=== PATIENT | male | born 1935 | race Caucasian/White ===

== ENCOUNTER 2022-12-04 13:22 | Inpatient (IN) | payer MEDICARE ==
[~2022-12-04] VITALS: Ht 175.3 cm; Wt 891.3 kg
[2022-12-04 14:43] LABS: BASOPHILS # (AUTO) 0.5 K/uL (0.0-0.2); BASOPHILS % (AUTO) 1.4 % (0.0-2.0); EOSINOPHILS % (AUTO) 2.9 % (0.0-6.0); HEMATOCRIT 26 % (39-51); HEMOGLOBIN 8.2 g/dL (13.5-17.5); LYMPHOCYTES # (AUTO) 1.5 K/uL (0.8-4.8); LYMPHOCYTES % (AUTO) 4.3 % (20.0-44.0); MEAN CORPUSCULAR HEMOGLOBIN 27 PG (26.0-33.0); MEAN CORPUSCULAR HGB CONC 31 g/dl (31.0-36.0); MEAN CORPUSCULAR VOLUME 85 fL (80-96); MONOCYTES % (AUTO) 5.8 % (2.0-12.0); NEUTROPHILS # (AUTO) 30.2 K/uL (1.8-8.9); NEUTROPHILS % (AUTO) 85.6 % (43.0-81.0); PLATELET COUNT (AUTO) 544 K/uL (150-450); RED BLOOD CELL COUNT(AUTO) 3.09 MIL/uL (4.5-6.0); RED CELL DISTRIBUTION WIDTH 20.6 % (11.5-15.0)
[2022-12-04 14:44] LABS: WHITE BLOOD COUNT (AUTO) 35.3 K/uL (4.3-11.0)
[2022-12-04 14:54] LABS: CALCIUM, SERUM 12.4 mg/dL (8.5-10.1); CARBON DIOXIDE 26 mmol/L (21-32); CHLORIDE 97 mmol/L (98-107); CREATININE 0.6 mg/dL (0.6-1.3); GLUCOSE 96 mg/dL (74-106); POTASSIUM 4.4 mmol/L (3.5-5.1); SODIUM SERUM 128 mmol/L (136-145); UREA NITROGEN, BLOOD 11 mg/dL (7-18)
[2022-12-04 15:00] LABS: ALANINE AMINOTRANSFERASE 14 U/L (12-78); ALBUMIN 1.8 g/dL (3.4-5.0); ALKALINE PHOSPHATASE 147 U/L (46-116); ASPARTATE AMINOTRANSFERASE 23 U/L (15-37); BILIRUBIN,DIRECT 0.2 mg/dL (0.0-0.2); BILIRUBIN,TOTAL 0.4 mg/dL (0.2-1.0); TOTAL PROTEIN, SERUM 5.7 g/dL (6.4-8.2)
[2022-12-04] MEDS ORDERED: POVI3780 TP (15:30)
[2022-12-04] MEDS ORDERED: MELA1TAB2 PO (15:30)
[2022-12-04] MEDS ORDERED: OMEG1CAP40 PO (15:30)
[2022-12-04] MEDS ORDERED: CALCIUM ALGINATE TD (15:30)
[2022-12-04] MEDS ORDERED: ZINC50TA65 PO (15:30)
[2022-12-04] MEDS ORDERED: XEROFORM TD (15:30)
[2022-12-04] MEDS ORDERED: VITA400C74 PO (15:30)
[2022-12-04] MEDS ORDERED: ALFU10TA10 PO (15:30)
[2022-12-04] MEDS ORDERED: ZOLP5TAB2 PO (15:30)
[2022-12-04] MEDS ORDERED: GLUC1TAB65 PO (15:30)
[2022-12-04] MEDS ORDERED: SENN-261 PO (15:30)
[2022-12-04] MEDS ORDERED: VANCOMYCIN 1 GM in IV D5W 250 ML IV ONE (15:30)
[2022-12-04] MEDS ORDERED: IV NS 0.9% 1,000 ML BAG IV ONE (15:30)
[2022-12-04] MEDS ORDERED: PIPERACILLIN /TAZOBACTAM 3.375 G in IV D5W 50 ML IV ONE (15:30)
[2022-12-04] MEDS ORDERED: ASCO-340 PO (15:30)
[2022-12-04] MEDS ORDERED: OXYC5TAB3 PO (15:30)
[2022-12-04] MEDS ORDERED: APIX5TAB PO (15:30)
[2022-12-04] MEDS ORDERED: MULT-754 PO (15:30)
[2022-12-04] MEDS ORDERED: FINA5TAB4 PO (15:30)
[2022-12-04] MEDS ORDERED: OXYC10TA49 PO (15:30)
[2022-12-04] MEDS ORDERED: DOCU250C14 PO (15:30)
[2022-12-04] MEDS ORDERED: SIME80TA15 PO (15:30)
[2022-12-04] MEDS ORDERED: TRIA80CR12 TP (15:30)
[2022-12-04] MEDS ORDERED: LATA7.5D EACHEYE (15:30)
[2022-12-04] MEDS ORDERED: PUMP160C PO (15:30)
[2022-12-04 15:36] LABS: ANISOCYTOSIS 1+; EOSINOPHILS % (MANUAL) 2 % (0-4); LYMPHOCYTES % (MANUAL) 3 % (16-48); MONOCYTES % (MANUAL) 3 % (0-11.0); NEUTROPHILS % (MANUAL) 92 (42-76)
[2022-12-04 16:06] LABS: APPEARANCE,URINE CLEAR (CLEAR); BILIRUBIN,URINE NEGATIVE (NEGATIVE); BLOOD, URINE NEGATIVE Ery/uL (NEGATIVE); COLOR,URINE YELLOW (YELLOW); KETONES,URINE NEGATIVE (NEGATIVE); LEUKOCYTE ESTERASE ,URINE 1+ (NEGATIVE); NITRITE, URINE NEGATIVE (NEGATIVE); PROTEIN,URINE NEGATIVE (NEGATIVE); UGLUCOSE NEGATIVE (NEGATIVE)
[2022-12-04 16:26] LABS: INR 1.32 (0.91-1.10); PARTIAL THROMBOPLASTIN TIME 27.4 SEC (24.3-34.3); PROTHROMBIN TIME 13.6 SECS (9.2-11.1)
[2022-12-04 16:31] LABS: RBC,URINE 0-2 /HPF (0-2); WBC,URINE 21-50 /HPF (0-3)
[2022-12-04 16:32] LABS: ADD URINE CULTURE YES; BACTERIA,URINE 1+ /HPF (None Seen)
[2022-12-04] MEDS ORDERED: oxyCODONE IR immediate release 5 MG PO PRN (17:00)
[2022-12-04] MEDS ORDERED: SENNOSIDES 8.6 MG TABLET PO PRN (17:00)
[2022-12-04] MEDS ORDERED: HYDROMORPHONE 1 MG/1 ML DISP.SYRIN IV PRN (17:00)
[2022-12-04] MEDS ORDERED: IV NS 0.9% 1,000 ML IV SCH (17:00)
[2022-12-04] MEDS ORDERED: HYDROMORPHONE INJ 2 MG/ML DISP.SYRIN IV PRN (18:00)
[2022-12-04] MEDS ORDERED: ACETAMINOPHEN 325 MG TABLET PO PRN (18:00)
[2022-12-04] MEDS ORDERED: MAGNESIUM HYDROXIDE 30 ML UDC PO PRN (18:00)
[2022-12-04] MEDS ORDERED: ONDANSETRON HCL/PF 4 MG/2 ML VIAL IVP PRN (18:00)
[2022-12-04] MEDS ORDERED: MAG HYDROX/AL HYDROX/SIMETH 30 ML UDC PO PRN (18:00)
[2022-12-04] MEDS ORDERED: Z GUARD REMEDY 4 OZ OINT TP PRN (18:00)
[2022-12-04] MEDS: DOCUSATE SODIUM 250 MG CAPSULE PO SCH (18:20)
[2022-12-04] MEDS: CEFEPIME 2 GM in IV D5W 100 ML IV SCH (18:20)
[2022-12-04] MEDS: APIXABAN 5 MG TABLET PO SCH (18:21)
[2022-12-04] MEDS: IV NS 0.9% 1,000 ML IV SCH (18:27)
[2022-12-04 20:00] VITALS: BP 100/54; TEMP 97.5; O2SAT 95
[2022-12-04] MEDS: ZOLPIDEM TARTRATE 5 MG TABLET PO PRN (21:41)
[2022-12-05] MEDS: CEFEPIME 2 GM in IV D5W 100 ML IV SCH ×2 (05:07→16:47)
[2022-12-05 05:18] LABS: BASOPHILS # (AUTO) 0.1 K/uL (0.0-0.2); BASOPHILS % (AUTO) 0.2 % (0.0-2.0); EOSINOPHILS # (AUTO) 0.9 K/uL (0.0-0.7); EOSINOPHILS % (AUTO) 2.6 % (0.0-6.0); HEMATOCRIT 24 % (39-51); HEMOGLOBIN 7.5 g/dL (13.5-17.5); LYMPHOCYTES # (AUTO) 1.4 K/uL (0.8-4.8); LYMPHOCYTES % (AUTO) 4.1 % (20.0-44.0); MEAN CORPUSCULAR HEMOGLOBIN 27 PG (26.0-33.0); MEAN CORPUSCULAR HGB CONC 32 g/dl (31.0-36.0); MEAN CORPUSCULAR VOLUME 84 fL (80-96); MONOCYTES # (AUTO) 1.9 K/uL (0.1-1.30); MONOCYTES % (AUTO) 5.3 % (2.0-12.0); NEUTROPHILS # (AUTO) 30.9 K/uL (1.8-8.9); NEUTROPHILS % (AUTO) 87.8 % (43.0-81.0); PLATELET COUNT (AUTO) 503 K/uL (150-450); RED CELL DISTRIBUTION WIDTH 20.2 % (11.5-15.0)
[2022-12-05 05:21] LABS: WHITE BLOOD COUNT (AUTO) 35.3 K/uL (4.3-11.0)
[2022-12-05 05:36] LABS: CALCIUM, SERUM 12.1 mg/dL (8.5-10.1); CARBON DIOXIDE 25 mmol/L (21-32); CHLORIDE 99 mmol/L (98-107); CREATININE 0.6 mg/dL (0.6-1.3); GLUCOSE 101 mg/dL (74-106); MAGNESIUM 1.7 mg/dL (1.8-2.4); PHOSPHORUS 2.4 mg/dL (2.5-4.9); POTASSIUM 4.2 mmol/L (3.5-5.1); SODIUM SERUM 128 mmol/L (136-145); UREA NITROGEN, BLOOD 11 mg/dL (7-18)
[2022-12-05] MEDS ORDERED: NEUTRA PHOS 1 POWD.PACKET PO ONE (07:30)
[2022-12-05 08:00] VITALS: BP 125/67; TEMP 98.2; O2SAT 96
[2022-12-05] MEDS: FINASTERIDE (5 MG) 5 MG TABLET PO SCH (08:10)
[2022-12-05] MEDS: SIMETHICONE 80 MG TAB.CHEW PO SCH (08:10)
[2022-12-05] MEDS: DOCUSATE SODIUM 250 MG CAPSULE PO SCH ×2 (08:10→16:47)
[2022-12-05] MEDS: MAGNESIUM OXIDE 400 MG TABLET PO SCH (08:10)
[2022-12-05] MEDS: IV NS 0.9% 1,000 ML IV SCH ×2 (08:10→23:52)
[2022-12-05] MEDS: APIXABAN 5 MG TABLET PO SCH ×2 (08:13→16:48)
[2022-12-05 10:14] LABS: ANISOCYTOSIS 1+; BASOPHILS % (MANUAL) 0 % (0.0-2.0); EOSINOPHILS % (MANUAL) 2 % (0-4); LYMPHOCYTES % (MANUAL) 6 % (16-48); MONOCYTES % (MANUAL) 7 % (0-11.0); NEUTROPHILS % (MANUAL) 85 (42-76); OVALOCYTES 1+; PLATELET ESTIMATE ADEQUATE
[2022-12-05 16:00] VITALS: BP 145/79; TEMP 97.8; O2SAT 94
[2022-12-05] MEDS: DAKINS QUARTER STRENGTH (0.125%) 480 ML BOTTLE TOP SCH (16:47)
[2022-12-05 17:04] LABS: THYROID STIMULATING HORMONE 4.186 uIU/mL (0.358-3.74)
[2022-12-05] MEDS ORDERED: PAMIDRONATE 90 MG in IV NS 0.9% 500 ML IV ONE (18:30)
[2022-12-05 20:00] VITALS: BP 137/60; TEMP 98.2; O2SAT 94
[2022-12-06] MEDS: ZOLPIDEM TARTRATE 5 MG TABLET PO PRN (00:25)
[2022-12-06] MEDS: CEFEPIME 2 GM in IV D5W 100 ML IV SCH ×2 (05:19→17:39)
[2022-12-06 07:01] LABS: BASOPHILS # (AUTO) 0.1 K/uL (0.0-0.2); BASOPHILS % (AUTO) 0.3 % (0.0-2.0); EOSINOPHILS # (AUTO) 0.4 K/uL (0.0-0.7); HEMATOCRIT 27 % (39-51); HEMOGLOBIN 8.5 g/dL (13.5-17.5); LYMPHOCYTES # (AUTO) 1.1 K/uL (0.8-4.8); LYMPHOCYTES % (AUTO) 2.7 % (20.0-44.0); MEAN CORPUSCULAR HEMOGLOBIN 27 PG (26.0-33.0); MEAN CORPUSCULAR HGB CONC 31 g/dl (31.0-36.0); MEAN CORPUSCULAR VOLUME 87 fL (80-96); NEUTROPHILS # (AUTO) 36.9 K/uL (1.8-8.9); PLATELET COUNT (AUTO) 628 K/uL (150-450); RED BLOOD CELL COUNT(AUTO) 3.13 MIL/uL (4.5-6.0); RED CELL DISTRIBUTION WIDTH 20.4 % (11.5-15.0)
[2022-12-06 07:05] LABS: WHITE BLOOD COUNT (AUTO) 40.6 K/uL (4.3-11.0)
[2022-12-06 07:13] LABS: CALCIUM, SERUM 12.7 mg/dL (8.5-10.1); CREATININE 0.6 mg/dL (0.6-1.3); MAGNESIUM 1.7 mg/dL (1.8-2.4); PHOSPHORUS 2.6 mg/dL (2.5-4.9)
[2022-12-06 07:33] LABS: C-REACTIVE PROTEIN 8.5 mg/dL (0.0-0.9)
[2022-12-06] MEDS: SIMETHICONE 80 MG TAB.CHEW PO SCH (08:39)
[2022-12-06] MEDS: MAGNESIUM OXIDE 400 MG TABLET PO SCH (08:39)
[2022-12-06] MEDS: FINASTERIDE (5 MG) 5 MG TABLET PO SCH (08:39)
[2022-12-06] MEDS: DOCUSATE SODIUM 250 MG CAPSULE PO SCH ×2 (08:40→17:39)
[2022-12-06] MEDS: APIXABAN 5 MG TABLET PO SCH ×2 (08:42→17:40)
[2022-12-06 08:54] LABS: RHEUMATOID FACTOR SCREEN NEGATIVE (NEGATIVE)
[2022-12-06 09:00] VITALS: BP 141/75; TEMP 97.6; O2SAT 94
[2022-12-06] MEDS ORDERED: IV NS 0.9% 1,000 ML IV PRN (10:28)
[2022-12-06] MEDS: DAKINS QUARTER STRENGTH (0.125%) 480 ML BOTTLE TOP SCH (10:47)
[2022-12-06 11:28] LABS: BAND % (MANUAL) 5 % (0.0-5.0); BASOPHILS % (MANUAL) 0 % (0.0-2.0); EOSINOPHILS % (MANUAL) 0 % (0-4); LYMPHOCYTES % (MANUAL) 4 % (16-48); MONOCYTES % (MANUAL) 6 % (0-11.0); NEUTROPHILS % (MANUAL) 85 (42-76); PLATELET ESTIMATE ADEQUATE
[2022-12-06 16:00] VITALS: BP 128/75; TEMP 97.6; O2SAT 97
[2022-12-06] MEDS ORDERED: ENSURE ENLIVE 237 ML LIQUID (VANILLA) PO SCH (17:00)
[2022-12-06] MEDS ORDERED: PROSOURCE / PROSTAT (PYXIS) 30 ML UDC PO SCH (17:00)
[2022-12-06] MEDS ORDERED: ARGININE/GLUTAMINE/CALCIUM BMB 1 EACH POWD.PACK PO SCH (17:00)
[2022-12-07 06:06] LABS: FOLIC ACID 11.7 ng/mL (>3.0)
[2022-12-07 10:07] LABS: *ANA ANTI-CENTROMERE B AB <0.2 AI (0.0-0.9); *ANA ANTI-DNA(DS) AB, QN 1 IU/mL (0-9); *ANA ANTI-JO-1 <0.2 AI (0.0-0.9); *ANA ANTICHROMATIN ANTIBODY 0.3 AI (0.0-0.9); *ANA RNP ANTIBODIES <0.2 AI (0.0-0.9); *ANA SJOGREN'S ANTI-SS-B <0.2 AI (0.0-0.9); *ANAANTI-SCLERODERMA-70 AB <0.2 AI (0.0-0.9); *ANASMITH AB <0.2 AI (0.0-0.9)
[2022-12-07 11:08] LABS: FREE KAPPA LT CHAINS SERUM 41.4 mg/L (3.3-19.4); FREE LAMBDA LT CHAIN SERUM 33.7 mg/L (5.7-26.3); KAPPA/LAMBDA RATIO SERUM 1.23 (0.26-1.65)
[2022-12-07 13:07] LABS: IMMUNOGLOBULIN A, SERUM 436 mg/dL (61-437); IMMUNOGLOBULIN G, SERUM 1256 mg/dL (603-1613)
[2022-12-09 08:06] LABS: *SPE A/G RATIO 0.7 (0.7-1.7); *SPE ALBUMIN 2.1 g/dL (2.9-4.4); *SPE ALPHA-1-GLOBULIN 0.3 g/dL (0.0-0.4); *SPE ALPHA-2-GLOBULIN 0.7 g/dL (0.4-1.0); *SPE BETA GLOBULIN 0.7 g/dL (0.7-1.3); *SPE GLOBULIN, TOTAL 3.2 g/dL (2.2-3.9); *SPE M-SPIKE Not Observed g/dL (Not Observed); *SPE PROTEIN TOTAL 5.3 g/dL (6.0-8.5); *SPEGAMMA GLOBULIN 1.4 g/dL (0.4-1.8)
[2022-12-10 11:07] LABS: IMMUNOGLOBULIN M, SERUM 133 mg/dL (15-143)
== END 2022-12-06 19:37 | disposition hospice, home (50) | DRG 542 ==
LOC: ER 13:41 → MED 16:38
PROVIDERS: ADMIT Internal Medicine; ATTEND Internal Medicine
DX: M84.58XA Pathological fracture in neoplastic disease, other specified site, initial encounter for fracture (principal); L89.214 Pressure ulcer of right hip, stage 4; E87.1 Hypo-osmolality and hyponatremia; R65.10 Systemic inflammatory response syndrome (SIRS) of non-infectious origin without acute organ dysfunction; J90 Pleural effusion, not elsewhere classified; J98.11 Atelectasis; R62.7 Adult failure to thrive; D69.6 Thrombocytopenia, unspecified; D72.821 Monocytosis (symptomatic); D75.839 Thrombocytosis, unspecified; E83.39 Other disorders of phosphorus metabolism; E83.42 Hypomagnesemia; E83.52 Hypercalcemia; G89.4 Chronic pain syndrome; I10 Essential (primary) hypertension; J84.10 Pulmonary fibrosis, unspecified; Z51.5 Encounter for palliative care; Z86.718 Personal history of other venous thrombosis and embolism; Z87.442 Personal history of urinary calculi; D64.9 Anemia, unspecified; C44.602 Unspecified malignant neoplasm of skin of right upper limb, including shoulder; D49.2 Neoplasm of unspecified behavior of bone, soft tissue, and skin; I73.9 Peripheral vascular disease, unspecified; X58.XXXA Exposure to other specified factors, initial encounter; Y93.9 Activity, unspecified; Y92.129 Unspecified place in nursing home as the place of occurrence of the external cause; I87.8 Other specified disorders of veins; S91.102A Unspecified open wound of left great toe without damage to nail, initial encounter; S91.101A Unspecified open wound of right great toe without damage to nail, initial encounter; M89.8X9 Other specified disorders of bone, unspecified site; Z79.01 Long term (current) use of anticoagulants; M84.48XA Pathological fracture, other site, initial encounter for fracture
CPT/HCPCS: 36415; 71045-TC; 73090-TC; 80048-TC; 80076-TC; 81001; 82533; 82607-TC; 82728-TC; 82784; 83540-TC; 83605-TC; 83735-TC; 84100-TC; 84155; 84165; 84439-TC; 84443-TC; 84484-TC; 84550-TC; 85025-TC; 85730-TC; 86140-TC; 86225; 86235; 86334; 86431-TC; 87040-TC; 87081-TC; 87086-TC; 93970-TC; A4223; A6253; A6403; G0378; J0692; J2430; J2543; J3370; J7030; J7040; J7060